=== PATIENT | female | born 1965 | race Caucasian/White ===

== ENCOUNTER 2020-01-13 08:00 | Outpatient (CLI) | payer OTHER | END 2020-01-13 23:59 | disposition home or self-care (01) | LOC: D.MAMMO 08:00 | PROVIDERS: ATTEND Family Medicine | DX: Z12.31 Encounter for screening mammogram for malignant neoplasm of breast (principal) ==

== ENCOUNTER → 2020-06-28 09:07 | Outpatient (CLI) | payer OTHER ==
[2020-06-28 10:00] LABS: BASOPHILS 0.2 % (0-2); EOSINOPHILS 1.1 % (0-7); HEMATOCRIT 41.8 % (36.0-48.0); HEMOGLOBIN 13.8 g/dL (12-16); IMMATURE GRANULOCYTES 0.2 % (0-5); LYMPHOCYTES 12.3 % (15-50); MCH 30.7 pg (26.0-34.0); MCV 92.9 fL (80.0-100.0); MEAN PLATELET VOLUME 10.6 fL (7.4-10.4); MONOCYTES 4.6 % (2-11); NEUTROPHILS 81.6 % (40-80); PLATELET COUNT 239 10x3/uL (130-400); RDW 13.2 % (11.5-14.5); WBC 10.1 10x3/uL (4.8-10.8)
[2020-06-28 10:45] LABS: ALBUMIN 3.6 g/dL (3.4-5.0); BILIRUBIN - DIRECT 0.13 mg/dL (0.00-0.30); BILIRUBIN - INDIRECT 0.31 mg/dL (0.00-1.00); BILIRUBIN - TOTAL 0.44 mg/dL (0.2-1.3); CREATININE - SERUM 1.2 mg/dL (0.6-1.3); PROTEIN - SERUM 6.8 g/dL (6.4-8.2)
[2020-06-29 06:11] LABS: HEP B CORE AB TOTAL Negative (Negative); HEPATITIS C ANTIBODY 8.9 S/CO RAT (0.0-0.9)
[2020-06-29 09:12] LABS: CD4:8 - % CD8 POS LYMPH 9.4 % (12.0-35.5); CD4:8 - ABS CD8 SUPPRESSOR 122 /uL (109-897); CD4:8 - ABSOLUTE CD4 HELPER 845 /uL (359-1519); CD4:8 - CD4/CD8 RATIO 6.91 (0.92-3.72)
[2020-06-29 10:11] LABS: BASO (ABSOLUTE) 0.1 x10E3/uL (0.0-0.2); BASOS 1 % (Not Estab.); EOS 1 % (Not Estab.); EOS (ABSOLUTE) 0.1 x10E3/uL (0.0-0.4); HEMATOCRIT 41.5 % (34.0-46.6); HEMOGLOBIN 13.7 g/dL (11.1-15.9); LYMPHS 12 % (Not Estab.); LYMPHS (ABSOLUTE) 1.3 x10E3/uL (0.7-3.1); MCV 94 fL (79-97); MONOCYTES 5 % (Not Estab.); MONOCYTES (ABSOLUTE) 0.5 x10E3/uL (0.1-0.9); NEUTROPHILS 81 % (Not Estab.); NEUTROPHILS (ABSOLUTE) 8.2 x10E3/uL (1.4-7.0); PLATELETS 228 x10E3/uL (150-450); RBC 4.42 x10E6/uL (3.77-5.28); RDW 12.6 % (11.7-15.4); WBC 10.1 x10E3/uL (3.4-10.8)
== END | disposition home or self-care (01) ==
LOC: D.LAB 09:07 → D.MRI 10:00
PROVIDERS: ATTEND Psychiatry & Neurology Neurology
DX: G35 Multiple sclerosis (principal)

== ENCOUNTER 2021-03-27 15:00 | Outpatient (CLI) | payer OTHER | END 2021-03-27 15:30 | disposition home or self-care (01) | LOC: D.MAMMO 15:00 | PROVIDERS: ATTEND Family Medicine | DX: Z12.31 Encounter for screening mammogram for malignant neoplasm of breast (principal) ==